=== PATIENT | male | born 1935 | race Caucasian/White ===

== ENCOUNTER → 2017-01-20 | Outpatient (CLI) | payer MEDICARE ==
[~2017-01-20] MED LIST: ASPI81 PO; DARV PO; FISH1000 PO
[2017-01-20 13:13] LABS: AUTOMATED NEUTROPHIL # 2.7 TH/MM3 (1.8-7.7); BASOPHIL # 0.1 TH/MM3 (0-0.2); BASOPHIL % 0.8 % (0.0-2.0); EOSINOPHIL # 0.4 TH/MM3 (0-0.4); EOSINOPHIL % 6.9 % (0.0-4.0); HEMATOCRIT 40.2 % (39.0-51.0); HEMO FLAGS DIFF FINAL; LYMPH % 34.2 % (9.0-44.0); LYMPHOCYTE # 2.1 TH/MM3 (1.0-4.8); MEAN CELL VOLUME 99.1 FL (80.0-100.0); MEAN CORPUSCULAR HEMOGLOBIN 33.4 PG (27.0-34.0); MEAN CORPUSCULAR HGB CONC 33.7 % (32.0-36.0); MONO % 13.9 % (0.0-8.0); NEUT % 44.2 % (16.0-70.0); PLATELET COUNT 189 TH/MM3 (150-450); RED BLOOD COUNT 4.05 MIL/MM3 (4.50-5.90); RED CELL DISTRIBUTION WIDTH 13.2 % (11.6-17.2); WHITE BLOOD COUNT 6.2 TH/MM3 (4.0-11.0)
[2017-01-20 13:55] LABS: ANION GAP 7 MEQ/L (5-15); AST (GOT) 19 U/L (15-37); BLOOD UREA NITROGEN 13 MG/DL (7-18); CHLORIDE 108 MEQ/L (98-107); GLOMERULAR FILTRATION RATE 59 ML/MIN (>89); GLUCOSE,FASTING 86 MG/DL (74-99); POTASSIUM 4.7 MEQ/L (3.5-5.1); SODIUM (NA) 142 MEQ/L (136-145)
[2017-01-20 14:05] LABS: ALKALINE PHOSPHATASE 50 U/L (45-117); ALT (GPT) 23 U/L (12-78); HDL CHOLESTEROL 61.6 MG/DL (40.0-60.0); LDL CHOLESTEROL 95 MG/DL (0-99); TOTAL BILIRUBIN ADULT 0.4 MG/DL (0.2-1.0)
== END ==
LOC: PLAB 08:11
PROVIDERS: ATTEND Family Medicine
DX: E78.4 Other hyperlipidemia (principal); R53.81 Other malaise; Z12.5 Encounter for screening for malignant neoplasm of prostate
CPT/HCPCS: 36415; 80053; 80061; 84443; 85025; G0103

== ENCOUNTER → 2018-01-27 | Outpatient (CLI) | payer MEDICARE ==
[2018-01-27 10:20] LABS: AUTOMATED NEUTROPHIL # 2.4 TH/MM3 (1.8-7.7); BASOPHIL % 0.3 % (0.0-2.0); EOSINOPHIL # 0.2 TH/MM3 (0-0.4); EOSINOPHIL % 3.6 % (0.0-4.0); HEMATOCRIT 39.4 % (39.0-51.0); HEMOGLOBIN 13.6 GM/DL (13.0-17.0); LYMPH % 35.1 % (9.0-44.0); LYMPHOCYTE # 1.8 TH/MM3 (1.0-4.8); MEAN CELL VOLUME 97.3 FL (80.0-100.0); MEAN CORPUSCULAR HEMOGLOBIN 33.6 PG (27.0-34.0); MEAN CORPUSCULAR HGB CONC 34.5 % (32.0-36.0); MEAN PLATELET VOLUME 8.2 FL (7.0-11.0); MONO % 14.7 % (0.0-8.0); MONOCYTE # 0.8 TH/MM3 (0-0.9); NEUT % 46.3 % (16.0-70.0); PLATELET COUNT 208 TH/MM3 (150-450); RED BLOOD COUNT 4.04 MIL/MM3 (4.50-5.90); RED CELL DISTRIBUTION WIDTH 12.7 % (11.6-17.2); WHITE BLOOD COUNT 5.3 TH/MM3 (4.0-11.0)
[2018-01-27 10:34] LABS: ALBUMIN 3.9 GM/DL (3.4-5.0); ALT (GPT) 27 U/L (12-78); AST (GOT) 23 U/L (15-37); BICARBONATE 27.6 MEQ/L (21.0-32.0); BLOOD UREA NITROGEN 14 MG/DL (7-18); CALCIUM 8.8 MG/DL (8.5-10.1); CHLORIDE 107 MEQ/L (98-107); CHOLESTEROL 175 MG/DL (120-200); CREATININE 1.22 MG/DL (0.60-1.30); GLOMERULAR FILTRATION RATE 57 ML/MIN (>89); GLUCOSE,FASTING 88 MG/DL (74-99); SODIUM (NA) 140 MEQ/L (136-145)
[2018-01-27 10:44] LABS: ALKALINE PHOSPHATASE 54 U/L (45-117); CHOLESTEROL/ HDL RATIO 3.27 RATIO; HDL CHOLESTEROL 53.5 MG/DL (40.0-60.0); LDL CHOLESTEROL 107 MG/DL (0-99); TOTAL BILIRUBIN ADULT 0.5 MG/DL (0.2-1.0); TOTAL PROTEIN 7.6 GM/DL (6.4-8.2); TRIGLYCERIDES 73 MG/DL (42-150)
== END ==
LOC: PLAB 08:05
PROVIDERS: ATTEND Family Medicine
DX: E78.5 Hyperlipidemia, unspecified (principal); E29.1 Testicular hypofunction; R53.83 Other fatigue; Z12.5 Encounter for screening for malignant neoplasm of prostate
CPT/HCPCS: 36415; 80053; 80061; 84443; 85025; G0103